=== PATIENT | male | born 1995 | race Two or more races ===

== ENCOUNTER 2019-05-30 18:05 | Emergency (ER) | payer BC ==
[~2019-05-30] VITALS: Ht 193 cm; Wt 103.4 kg
[2019-05-30 18:21] VITALS: BP 132/74
[2019-05-30] MEDS ORDERED: IBUPROFEN 600 MG TABLET PO ONE ×2 (18:53→19:00)
[2019-05-30] MEDS ORDERED: ACETAMINOPHEN ES 500 MG TABLET ONE (18:53)
--- NOTE | 2019-05-30 18:58 | NUR ---
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
[2019-05-30] MEDS ORDERED: ACETAMINOPHEN ES 500 MG TABLET PO ONE (19:00)
== END 2019-05-30 19:35 | disposition home or self-care (01) ==
LOC: ER 18:05
DX: S62.001A Unspecified fracture of navicular [scaphoid] bone of right wrist, initial encounter for closed fracture (principal); S80.211A Abrasion, right knee, initial encounter; S80.811A Abrasion, right lower leg, initial encounter; S60.311A Abrasion of right thumb, initial encounter; R51 Headache; Z98.890 Other specified postprocedural states; V49.49XA Driver injured in collision with other motor vehicles in traffic accident, initial encounter; Y93.89 Activity, other specified; Y92.488 Other paved roadways as the place of occurrence of the external cause; Y99.8 Other external cause status
CPT/HCPCS: 73110; 73130-TC